=== PATIENT | male | born 1955 | race Caucasian/White ===

== ENCOUNTER → 2018-10-07 | Outpatient (CLI) | payer OTHER ==
[~2018-10-07] MED LIST: ADVAIR HFA115 MCG/21 INH; ALBUTEROL2.5 MG/31 INH; ASPIRIN325 PO; MOBIC7.5 MG
--- NOTE | 2018-10-07 13:40 | 2DMMODE ---
[facility] [place] [address] 2 D/M-MODE ECHOCARDIOGRAM Name: KAT CUMMINS [facility] [id number] ������������� Admission: 10/07/18 ������������� Attend Phys: Jim Alexander, Discharge: ��� ������������� ��� Date of : 51 Date of Service: 10/07/18 1339 �� Report #: [id number] �������� ��������������������������������������������[id number] THIS REPORT FOR: //name// APPROVED REPORT Study performed: 10/07/2018 08:58:52 EXAM: Comprehensive 2D, Doppler, and color-flow Echocardiogram Patient Location: Out-Patient Room #: Echo lab 2 Status: routine BSA: 1.89 HR: 87 bpm BP: 102/62 mmHg Rhythm: NSR Other Information Study Quality: Good Indications CAD 2D Dimensions RVDd: 35.87 mm IVSd: 11.31 (7-11mm) LVOT Diam: 21.93 (18-24mm) LVDd: 35.51 mm PWd: 10.59 (7-11mm) Ascending Ao: 29.96 (22-36mm) LVDs: 25.59 (25-40mm) Aortic Root: 31.98 mm IVC: 16.00 mm Volumes Left Atrial Volume (Systole) Single Plane 4CH: 36.85 mL Single Plane 2CH: 48.52 mL LA ESV Index: 25.00 mL/m2 Aortic Valve AoV Peak Jose E.: 1.16 m/s AO Peak Gr.: 5.41 mmHg LVOT Max P.97 mmHg LVOT Max V: 1.00 m/s SHERITA Vmax: 3.23 cm2 Mitral Valve E/A Ratio: 1.4 MV Decel. Time: 156.17 ms MV E Max Jose E.: 0.98 m/s [facility] [address] [place] [address] 2 D/M-MODE ECHOCARDIOGRAM Name: KAT CUMMINS Room #: REG [facility]#: [id number] ������������� Admission: 10/07/18 ������������� Attend Phys: Jim Alexander, Discharge: ��� ������������� ��� Date of : 51 Date of Service: 10/07/18 1339 �� Report #: [id number] �������� ��������������������������������������������[id number] MV A Jose E.: 0.71 m/s MV PHT: 45.29 ms IVRT: 73.82 ms Pulmonary Valve PV Peak Jose E.: 0.98 m/s PV Peak Gr.: 3.88 mmHg Pulmonary Vein P Vein S: 0.54 m/s P Vein A: 0.28 m/s P Vein D: 0.44 m/s P Vein A Dur.: 73.8 msec P Vein S/D Ratio: 1.23 Left Ventricle The left ventricle is normal size. There is normal LV segmental wall motion. There is normal left ventricular wall thickness. Left ventricular systolic function is vigorous. LVEF is >70%. Transmitral Doppler flow pattern suggests impaired LV relaxation. Right Ventricle The right ventricle is normal size. The right ventricular systolic function is normal. Atria The left atrium size is normal. The right atrium size is normal. Aortic Valve The Aortic valve is sclerotic. No aortic regurgitation is present. There is no aortic valvular stenosis. Mitral Valve The mitral valve is normal in structure. Mild mitral regurgitation. No evidence of mitral valve stenosis. Tricuspid Valve The tricuspid valve is normal in structure. There is no tricuspid valve regurgitation noted. Pulmonic Valve The pulmonary valve is normal in structure. There is no pulmonic valvular regurgitation. Great Vessels The aortic root is normal in size. IVC is normal in size and collapses >50% with inspiration. [facility] [address] [place] [address] 2 D/M-MODE ECHOCARDIOGRAM Name: KAT CUMMINS Room #: REG [facility] [id number] ������������� Admission: 10/07/18 ������������� Attend Phys: Jim Alexander, Discharge: ��� ������������� ��� Date of : 51 Date of Service: 10/07/18 1339 �� Report #: [id number] �������� ��������������������������������������������[id number] Pericardium There is no pericardial effusion. <Conclusion> The left ventricle is normal size. There is normal left ventricular wall thickness. Left ventricular systolic function is vigorous. LVEF is >70%. Transmitral Doppler flow pattern suggests impaired LV relaxation. The Aortic valve is sclerotic. Mild mitral regurgitation. IVC is normal in size and collapses >50% with inspiration. ��������������������������������������������� <ELECTRONICALLY SIGNED> ���������������������������������������� By: Jim Alexander MD, FAC ��������������������������������������������� 10/07/18 1339 1339 38 Jim Alexander MD, FAC /INF
== END ==
LOC: NUC 08:22
DX: I08.0 Rheumatic disorders of both mitral and aortic valves (principal); I25.10 Atherosclerotic heart disease of native coronary artery without angina pectoris; J44.9 Chronic obstructive pulmonary disease, unspecified; F17.200 Nicotine dependence, unspecified, uncomplicated; Z88.5 Allergy status to narcotic agent

== ENCOUNTER 2019-01-21 09:41 | Inpatient (IN) | payer OTHER ==
[~2019-01-21] VITALS: Ht 182.9 cm; Wt 68.4 kg
[2019-01-21 09:43] VITALS: BP 114/63
[2019-01-21 10:15] LABS: ABSOLUTE NEUTROPHILS 11.5 thou/uL (1.4-8.2); BASOPHILS 0.4 % (0.0-2.0); HEMATOCRIT 45.3 % (42.0-52.0); HEMOGLOBIN 15.1 gm/dL (14.0-18.0); LYMPHOCYTES 1.6 % (24.0-44.0); MCH 29.4 pg (26.0-34.0); MCHC 33.4 g/dL (28.0-37.0); MCV 88.2 fL (80.0-100.0); MONOCYTES 4.1 % (1.0-8.0); PLATELET COUNT 248 thou/uL (150-400); POLYS 93.9 % (36.0-66.0); RBC 5.13 mil/uL (4.50-6.00); RDW 15.7 % (10.5-14.5); WBC 12.3 thou/uL (4.0-11.0)
[2019-01-21 10:21] LABS: CALCIUM 9.5 mg/dL (8.5-10.1); CREATININE 1.2 mg/dL (0.7-1.3); POTASSIUM 4.2 mmol/L (3.5-5.1)
[2019-01-21 19:29] VITALS: BP 101/62
[2019-01-21] MEDS ORDERED: LIPITOR40 MG PO (20:30)
--- NOTE | 2019-01-21 21:23 | NUR ---
CALLED THE UNIT FOR THE SECOND TIME TO GIVE REPORT. NURSE NOT AVAILABLE. NURSE ON FLOOR TO CALL BACK WHEN READY.
[2019-01-21 21:29] VITALS: BP 101/53
--- NOTE | 2019-01-21 21:36 | NUR ---
REPORT GIVEN TO CCU RN, CADY.
--- NOTE | 2019-01-21 21:38 | NUR ---
PT RESTING IN BED. O2 SATS STABLE ON 2LNC. AT BEDSIDE. VSS. ST ON THE MONITOR. C/O INTERMITTENT HEAD AND JAW PAIN. NO OTHER MAJOR COMPLAINTS. WILL TRANSFER TO CCU BED. REPORT GIVEN TO CCU RN.
[2019-01-21 21:58] VITALS: BP 101/53
[2019-01-21 22:01] VITALS: BP 112/63
[2019-01-22 00:22] VITALS: BP 100/60
--- NOTE | 2019-01-22 04:40 | NUR ---
PT WAS AN ER ADMIT. PT IS ADMITTED WITH PNA AND FEVER. SPOUSE AT BEDSIDE. PT IS STABLE. ASSESSMENT COMPLETED AND SIGNED. CONSENTS SIGNED. SCHEDULED MEDS ADMINISTERED TO PT. ADMISSION DATA AND ASSESSMENT COMPLETED IN ER. PT IS STABLE. PT DEVELOPED A FEVER. DENIES ANY NEEDS AT THIS TIME.
[2019-01-22 05:30] VITALS: BP 116/67
[2019-01-22 06:10] LABS: URINE BLOOD 1+ (Negative); URINE CLARITY CLEAR; URINE GLUCOSE-RANDOM* TRACE (Negative); URINE KETONES NEGATIVE (Negative); URINE LEUKOCYTES-REFLEX NEGATIVE (Negative); URINE NITRITE-REFLEX NEGATIVE (Negative); URINE PROTEIN (DIPSTICK) 2+ (Negative)
[2019-01-22 06:13] LABS: URINE BILIRUBIN NEGATIVE (Negative); URINE COLOR DARK YELLOW
[2019-01-22 06:14] LABS: ICTOTEST (BILI CONFIRMATORY) Negative (Negative)
[2019-01-22 06:25] LABS: SQUAMOUS 0-3 Few /LPF (0-3)
[2019-01-22 06:26] LABS: BACTERIA-REFLEX 1-9 Few /HPF (None Seen); CASTS None Seen /LPF (None Seen); MUCUS 0-3 Light strn/LPF (None Seen); URINE RBC 0-2 Rare /HPF (0-2); URINE WBC-REFLEX 0-5 Rare /HPF (0-5)
[2019-01-22 06:27] LABS: AMORPHOUS URATES Few /LPF (None Seen)
[2019-01-22 07:10] VITALS: BP 116/62
--- NOTE | 2019-01-22 08:38 | EKG ---
[place] [address] [address] [facility] [place] [address] ELECTROCARDIOGRAM REPORT Name: KAT CUMMINS Room #: 200-I ADM IN M.R.#: [id number] Admission: 01/21/19 Attend Phys: Kristian James Discharge: Date of : 51 Report #: [id number] THIS REPORT FOR: //name// [facility] ED Test Date: 2019-01-21 Test Time: 09:51:57 Pat Name: KAT CUMMINS Department: Room: 200 Gender: M Cable Placer: THANIA : 1955 Requested By: Rayo Rey Order Number: [id number] MD: Juan M Fermin Measurements Intervals [place] Rate: 117 P: 79 FL: 108 QRS: 73 QRSD: 94 T: 60 QT: 311 QTc: 434 Interpretive Statements Sinus tachycardia Ventricular premature complexes Biatrial enlargement RSR' in V1 or V2, right VCD No previous ECG available for comparison Electronically Signed On 01-22-2019 8:38:18 CDT by Juan M Fermin [email or web address] <ELECTRONICALLY SIGNED> By: Juan M Fermin MD, [facility] 01/22/19 0838 0 0 Juan M Fermin MD, FAC /EPI
[2019-01-22 11:10] VITALS: BP 120/67
[2019-01-22 15:35] VITALS: BP 111/57
--- NOTE | 2019-01-22 17:13 | NUR ---
ASSESSMENT CHARTED - MEDS PER JUL - PT SOB WITH MIN EXERTION. PT WITH LOW SAT THIS AFTERNOON - ASSESSMENT @ 1545 CHARTED - SAT ON 2 L MID 80'S TURNED O2 UP TO 4 L NC SAT UPPER 80- - RESP CALL FOR BREATHING TREATMENT - PATIENT SAT POST TREATMENT AND O2 @ 5 LNC - MID 90'S - DR HARE CALLED AND INFORMED OF INCREASED O2 NEEDS @ 1635 AND WHAT WE HAD DONE - NO NEW ORDERS. KAELYN DIET AND FLIUDS. PT STATAING HEIS REALLY TIERD AND WANTS TO REST. CO'S OF HEADACHE THIS AM - GIVEN TYLENOL WITH NO RELIEF - NOTIFIED AND HYDROCODONE IV GIVEN WITH RELIEF - PT POST MED DID HAVE SOME DRY HEAVING WHICH PASSED. AT THE BEDSIDE FOR SOME OF THE DAY. NO CO'S AT THE PRESENT TIME APPEARS TO BE RESTING COMFORTABLY.
[2019-01-22 20:11] VITALS: BP 110/62
[2019-01-23 03:10] VITALS: BP 111/60
--- NOTE | 2019-01-23 04:13 | NUR ---
ASSESSMENTS CHARTED. MEDS CHARTED. PATIENT ON 5 LITERS AT START OF SHIFT. SINUS RHYTHM. KUSH COLORED URINE. UP WITH STANDBY DUE TO DIZZINESS UPON STANDING. DENIED PAIN. ON DRIPS OF NORMAL SALINE AND ANTIBIOTICS. PATIENT C/O STRANGE FEELINGS, HIS JAW LOCKING IN PLACE, AND SOA, BREATHING TREATMENT GIVEN. PATIENT RELAXED FOR THE REST OF THE SHIFT.
[2019-01-23 06:46] VITALS: BP 136/82
[2019-01-23 15:13] VITALS: BP 136/90
[2019-01-23 21:26] VITALS: BP 135/69
--- NOTE | 2019-01-24 04:03 | NUR ---
ASSUMED CARE OF PT @1900. PT A&OX4. PT IS ABLE TO USE THE URINAL AT THE BEDSIDE WITH SB ASSIST. PT ON 5L ON O2 NC WITH SATS IN THE UPPER 90's. RALES WAS NOTED IN PT RIGHT LOWER LOBE WHEN I LISTENED T HIS LUNGS. PT GETS Q4HR NEB TX. PT C/O OF A SHARP PAIN IN THE LEFT QUADRANT AND MILD H/A. TORADOL WAS GIVEN WITH COMPLETE RELIEF. PT IS PRODUCING COPIOUS AMT OF THICK BLOODTINGED SPUTUM. NO S/S OF ACCUTE DISTRESS. WILL CONT TO MONITOR
[2019-01-24 04:56] VITALS: BP 140/77
[2019-01-24 06:17] LABS: CREATININE 0.8 mg/dL (0.7-1.3)
[2019-01-24 07:42] VITALS: BP 133/66
--- NOTE | 2019-01-24 11:06 | NUR ---
PT ALERT XS 4. SELF CARE WITH ADLS. CONT ON IV ABT THERAPY. NO PAIN AT PRESENT CONTINUES ON 5L/ NC. RESP TX'S ORDERED RIGHT LUNG COARSE WITH CRACKLES. HAS NS INFUSING AT 75HR/ THROUGH LEFT AC. PT PLEASANT AND COOPERATIVE WITH CARE.
[2019-01-24 16:45] VITALS: BP 136/78
[2019-01-24 19:42] VITALS: BP 141/77
--- NOTE | 2019-01-25 04:43 | NUR ---
ASSUMED CARE OF PT @1900. NO CHANGES OVERNIGHT. PT CONT ON BREATHING TX Q4HRS. PRODUCTIVE BLOOD TINGE SPUTUM. USES THE URINAL. CALL ROBERT WITHIN REACH
[2019-01-25 08:20] VITALS: BP 135/73
[2019-01-25 14:51] LABS: HEMATOCRIT 38.6 % (42.0-52.0); HEMOGLOBIN 12.7 gm/dL (14.0-18.0); MCH 29.2 pg (26.0-34.0); MCHC 32.9 g/dL (28.0-37.0); MCV 88.8 fL (80.0-100.0); RBC 4.34 mil/uL (4.50-6.00); RDW 16.1 % (10.5-14.5); WBC 10.7 thou/uL (4.0-11.0)
[2019-01-25 15:06] LABS: CALCIUM 8.3 mg/dL (8.5-10.1); CREATININE 0.9 mg/dL (0.7-1.3); POTASSIUM 4.8 mmol/L (3.5-5.1); TOTAL BILIRUBIN 0.3 mg/dL (<0.1-1.0); TOTAL PROTEIN 6.2 g/dL (6.4-8.2)
--- NOTE | 2019-01-25 16:16 | NUR ---
PT CALLED OUT WITH USE OF CALL LIGHT AND STATED HE COULD NOT CATCH HIS BREATH OR BREATH. RN WENT IMMEDIATELY TO PT ROOM AND REASSESED PT. PT'S 02 WAS ON 2L NC AT 90% AND PT WAS TURNED UP TO 5L NC WITH O2 SAT OF 95%. PT STATES HE WAS COUGHING VERY HARD AND BECAME VERY SOA AND FELT HE WAS UNABLE TO BREATH. NURSING STAYED WITH PT, AUSCULTATED LUNGS, TOOK VITAL SIGNS AND INCREASED O2. RT THERAPIST WAS CALLED AND ROUNDED ON PT. PT WAS ABLE TO SLOW, DEEP BREATH AND CALM HIMSELF DOWN. PT IS NOW RESTING, 5L O2 AND STATES HE CAN NOW BREATH IS APPEARS MORE RELAXED.
[2019-01-25 18:58] VITALS: BP 188/80
--- NOTE | 2019-01-26 01:45 | NUR ---
patient aox4 makes needs known. patient has productive cough. patient is on 2l continous no shortness of air or distress noted this shift. patient is up at lionel. patient uses urinal. patient in bed asleep at this time breathing regular and unlaboured.
[2019-01-26 03:09] LABS: GLYCOHEMOGLOBIN (HGB A1C) 6.1 % (4.8-5.6)
[2019-01-26 08:10] VITALS: BP 139/87
[2019-01-26 11:08] LABS: HEMATOCRIT 38.4 % (42.0-52.0); HEMOGLOBIN 12.9 gm/dL (14.0-18.0); MCH 29.6 pg (26.0-34.0); MCHC 33.7 g/dL (28.0-37.0); MCV 87.8 fL (80.0-100.0); RBC 4.37 mil/uL (4.50-6.00); WBC 9.4 thou/uL (4.0-11.0)
[2019-01-26 11:22] LABS: ALBUMIN 2.1 g/dL (3.4-5.0); CALCIUM 8.3 mg/dL (8.5-10.1); CREATININE 0.7 mg/dL (0.7-1.3); TOTAL BILIRUBIN 0.3 mg/dL (<0.1-1.0); TOTAL PROTEIN 6.1 g/dL (6.4-8.2)
--- NOTE | 2019-01-26 14:40 | NUR ---
PT A&OX4, VSS, DENIES PAIN. PT HAS PRODUCTIVE COUGH, SPUTUM IS ORange/PINK. PT IS ON 2L OF OXYGEN, HAS SOA WITH EXERCTION. SOA WITH EXERCTION, AT BEDSIDE. PT AGREES TO TAKE HIS TIME, TAKE DEEP BREATHES, AND TO SPACE OUT ACTIVITIES. WILL CONTINUE TO MONITOR.
[2019-01-26 17:30] VITALS: BP 137/86
[2019-01-26 19:28] VITALS: BP 144/74
[2019-01-27 03:12] VITALS: BP 146/77
--- NOTE | 2019-01-27 03:13 | NUR ---
PATIENT DENIED PAIN OR DISCOMFORT. PATIENT HAS SHORTNESS OR AIR WITH ACTIVITIES. PAIENT HAS A PRODUCTIVE COUGH WITH ORANGE SPUTUM. CALL LIGHT WITHIN REACH. PATIENT IN BED ASLEEP AT THIS TIME BREATHING REGULAR AND UNLABOURED.
[2019-01-27 06:15] LABS: ALBUMIN 2.2 g/dL (3.4-5.0); CALCIUM 8.5 mg/dL (8.5-10.1); CREATININE 0.7 mg/dL (0.7-1.3); POTASSIUM 4.7 mmol/L (3.5-5.1); TOTAL BILIRUBIN 0.4 mg/dL (<0.1-1.0); TOTAL PROTEIN 6.2 g/dL (6.4-8.2)
[2019-01-27 08:42] VITALS: BP 152/79
--- NOTE | 2019-01-27 09:53 | NUR ---
PT ADMITTED RELATED TO FEVER, HEADACHE, BODY ACHES. CM REVIEWED CHART AND SPOKE WITH CARE TEAM. CM MET WITH PT AT BEDSIDE THIS DAY. PT IS A&O X4. CM ROLE INTRODUCED. PT INDICATED THAT HE LIVES IN A HOUSE WITH IS SPOUSE, 2 DOGS, AND A CAT. PT INDICATED HE HAD BEEN INDEPENDENT WITH GAIT AND ADLS MILK CONDENSER. PT INDIATED NO HH OR OP HX. PT INDICATED HE PLANS TO DC HOME ONCE MEDICALLY STABLE. PT INDICATED NO O2 OR NEBS AT HOME MILK CONDENSER. CM TO FOLLOW INDICATED WITH DC PLANNING.
[2019-01-27 15:31] VITALS: BP 135/67
[2019-01-27 17:42] LABS: % SATURATION 20 % (20-39); IRON 49 ug/dL (65-175); TIBC 249 ug/dL (250-450)
[2019-01-27 20:46] VITALS: BP 128/64
[2019-01-27 20:47] VITALS: BP 128/64
--- NOTE | 2019-01-27 21:16 | NUR ---
PT A&OX4, VSS, DENIES PAIN. PT RESTING IN BED, SOA ON EXERTIONS, ON 2L OXYGEN VIA NASAL CANNULA. PATIENT HAS PRODUCTIVE LOOSE COUGH, WITH BLOOD TINGED SPUTUM. SPUTUM CULTURE SENT DOWN TO LAB. PT IS TO BE NPO TONIGHT IN PREPARATION FOR ABD. ULTRASOUND IN THE MORNING 01/28/19. NO SIGNS OF DISTRESS, FAMILY AT BEDSIDE. WILL CONTINUE TO MONITOR.
[2019-01-27 22:06] LABS: IgG 808 mg/dL (700-1600)
[2019-01-28 01:25] VITALS: BP 153/72
--- NOTE | 2019-01-28 02:25 | NUR ---
assumed care of pt @1900. pt a&ox4. no c/o of pain. pt still coughing up copous amt of blood tinge sputum. sputum cultures pendng. pt adlib in room. pt called and said he felt like his entire body was on fire after walkng to the bathroom and back to bed. assessment was done, v/s stable and assessment benign. pt on 2l NC. no signs of distress. pt feels better and will try to continue resting. pt has been npo since after midnght. call sigala within reach. will continue to monitor
[2019-01-28 08:39] VITALS: BP 139/80
[2019-01-28 08:58] LABS: HEMATOCRIT 38.1 % (42.0-52.0); HEMOGLOBIN 12.6 gm/dL (14.0-18.0); MCH 29.1 pg (26.0-34.0); MCHC 33.1 g/dL (28.0-37.0); MCV 87.9 fL (80.0-100.0); RBC 4.34 mil/uL (4.50-6.00); RDW 16.2 % (10.5-14.5)
[2019-01-28 09:08] LABS: ALBUMIN 2.2 g/dL (3.4-5.0); CALCIUM 8.4 mg/dL (8.5-10.1); CREATININE 0.8 mg/dL (0.7-1.3); MAGNESIUM 2.3 mg/dL (1.8-2.4); TOTAL BILIRUBIN 0.3 mg/dL (<0.1-1.0); TOTAL PROTEIN 5.9 g/dL (6.4-8.2)
--- NOTE | 2019-01-28 11:10 | NUR ---
Nutrition: Pt seen for LOS. Admit: fever, headache, body aches, found to have pneumonia and mild hemoptysis. Hx COPD (emphysema in type per MD notes). Met w/ pt and spouse at bedside prior to lunch. Pt is hopeful to discharge today. Very limited meal records available (01/22 and only 1 meal 01/25), but pt reports he is eating, but struggling most w/ medication after taste between steroids, antibiotics, and breathing treatments q 4 h rs. Beaver oatmeal now; refers to it as a "t-bone steak." Encouraged melting in added butter to boost kcal intake or add peanut butter 190 kcals per 2 T. Also suggested protein rich sides. Pt thankful for suggestions. Reports appetite has improved this past week. Denies further nutrition needs. Deemed low nutrition risk.
--- NOTE | 2019-01-28 11:56 | NUR ---
SW reviewed chart and spoke with attending physician. Pt is progressing towards goals for discharge. Discharge home is anticipated for tomorrow. Pt may need home O2. Pt is currently on 2L. Rest/exercise oximetry will need to be completed prior to discharge to determine pt's home O2 needs. Plan is for pt to discharge home when medically stable. SW is following to assist as needed with discharge planning.
[2019-01-28 13:12] LABS: CERULOPLASMIN 24.4 mg/dL (16.0-31.0)
[2019-01-28 14:07] LABS: ANA INTERPRETATION Negative (Negative)
[2019-01-28 14:57] VITALS: BP 123/69
[2019-01-28 16:09] LABS: HAV IgM AB (ANTI-HAV IgM) Negative (Negative); HEPATITIS B SURFACE AG Negative (Negative); HEPATITIS C VIRUS AB <0.1 (0.0-0.9)
[2019-01-28 16:09] LABS: HAV IgM AB (ANTI-HAV IgM) Negative (Negative); HEPATITIS B SURFACE AG Negative (Negative); HEPATITIS C VIRUS AB <0.1 (0.0-0.9)
[2019-01-28 19:18] VITALS: BP 129/68
--- NOTE | 2019-01-28 21:29 | NUR ---
PATIENT ABLE TO MAINTAIN ADEQUATE O2 SATS ON 2L NC WHILE AT REST. AMBULATED WITH RT THIS SHIFT. REQUIRED 4L O2 TO AMBULATE. PATIENT ABLE TO AMBULATE APPROX 300 STEPS OUTSIDE OF UNIT AND AROUND UNIT WITH NURSE. PATIENT REQUIRED 3L O2 AND MAINTAINED SATURATION OF 90%. PATIENT REPORTED SOB TOWARDS END OF AMBULATION BT REPORTS THAT HE HAS FELT MUCH WORSE PREVIOUSLY. INCENTIVE SPIROMETER AT BEDSIDE, PATIENT ENCOURAGED TO USE IS AND REPORTS USING FREQUENTLY.
--- NOTE | 2019-01-29 03:20 | NUR ---
ASSUMED CARE OF PT @ 1900. PT A&OX4. ADLIB IN THE ROOM. ON 2L NC. NO CHANGES OVERNIGHT. VS STABLE. NO S/S OF DISTRESS. CALL ROBERT WITHIN REACH
[2019-01-29 05:03] VITALS: BP 118/75
[2019-01-29 08:06] VITALS: BP 115/66
--- NOTE | 2019-01-29 12:24 | NUR ---
SW reviewed chart and spoke with nursing and attending physician. Pt is progressing towards goals for discharge. Rest/exercise oximetry to be ordered to determine pt's home O2 needs. SW is following to assist as needed with discharge planning.
[2019-01-29] MEDS ORDERED: MIRALAX17 GM PO (14:43)
[2019-01-29] MEDS ORDERED: MUCINEX600 MG PO (14:43)
[2019-01-29] MEDS ORDERED: TYLENOL325 MG PO (14:43)
[2019-01-29] MEDS ORDERED: ACETYLCYST200 MG/1 M PO (14:43)
[2019-01-29] MEDS ORDERED: PREDNISONE 10 M10 MG PO (14:52)
[2019-01-29] MEDS ORDERED: LEVAQUIN 750 M750 MG PO (14:52)
[2019-01-29] MEDS ORDERED: PROBIOTIC1 EAC1 PO (14:52)
--- NOTE | 2019-01-29 15:00 | NUR ---
PT A&OX4, VSS, DENIES PAIN. PATIENT LUNGS CLEAR, PT HAS PRODUCTIVE COUGH WITH LESS BLOOD IN SPUTUM. PT STATES HE IS COUGHING LESS. O2 SATS 94%, BREATHING REGULAR, NO SIGNS OF DISTRESS. WILL CONTINUE TO MONITOR.
[2019-01-29 16:38] VITALS: BP 115/66
[2019-03-30] MEDS ORDERED: ASA81BEC PO (15:13)
[2019-03-30] MEDS ORDERED: ADVAIR 250-501 EACH INH (15:14)
[2019-03-30] MEDS ORDERED: SPIRIVA INH (15:15)
[2019-03-30] MEDS ORDERED: PROAIR HFA8.5 GM INH (15:16)
[2019-03-30] MEDS ORDERED: CRESTOR20 MG PO (15:17)
== END 2019-01-29 17:32 | disposition home or self-care (01) | DRG 871 ==
LOC: ER 09:41 → EROBS 10:53 → 2N 10:53 → EROBS 19:38 → 2N 21:45 → 4W 01-23 06:32
PROVIDERS: Emergency Medicine; Internal Medicine; Nurse Practitioner; ADMIT Hospitalist
DX: A41.9 Sepsis, unspecified organism (principal); J96.01 Acute respiratory failure with hypoxia; J15.9 Unspecified bacterial pneumonia; R04.2 Hemoptysis; E46 Unspecified protein-calorie malnutrition; J98.11 Atelectasis; F17.210 Nicotine dependence, cigarettes, uncomplicated; E78.5 Hyperlipidemia, unspecified; J43.9 Emphysema, unspecified; K75.9 Inflammatory liver disease, unspecified; N28.1 Cyst of kidney, acquired; Z68.20 Body mass index [BMI] 20.0-20.9, adult; Z88.6 Allergy status to analgesic agent; Z71.6 Tobacco abuse counseling; Z86.010 Personal history of colon polyps; Z79.899 Other long term (current) drug therapy
CPT/HCPCS: 10047; 10081; 10194

== ENCOUNTER → 2019-03-10 | Outpatient (CLI) | payer OTHER ==
[~2019-03-10] MED LIST changes: +ACETYLCYST200 MG/1 M PO; +ADVAIR 250-501 EACH INH; +ASA81BEC PO; +CRESTOR20 MG PO; +LEVAQUIN 750 M750 MG PO; +LIPITOR40 MG PO; +MIRALAX17 GM PO; +MUCINEX600 MG PO; +PREDNISONE 10 M10 MG PO; +PROAIR HFA8.5 GM INH; +PROBIOTIC1 EAC1 PO; +SPIRIVA INH; +TYLENOL325 MG PO
== END ==
LOC: RAD 11:53
DX: J69.0 Pneumonitis due to inhalation of food and vomit (principal)

== ENCOUNTER → 2019-04-01 | Outpatient (CLI) | payer OTHER ==
[~2019-04-01] VITALS: Ht 180.3 cm; Wt 68.9 kg
--- NOTE | 2019-04-02 18:06 | PATH ---
[facility] [place] [address] PATHOLOGY RPT PROCEDURE Name: REGGIE CUMMINS Room #: REG [facility] M.R.#: [id number] Admission: 04/01/19 Date of : 51 Discharge: Report #: [id number] Path Case #: [id number] [facility] Accession Number: [id number] . 01 Material submitted: . PART A: colon - POLYP AT TRANSVERSE COLON. Modifiers: transverse PART B: colon - POLYP AT DESCENDING COLON X2. Modifiers: descending PART C: colon - POLYP AT SIGMOID COLON. Modifiers: sigmoid PART D: rectum - POLYP X4 AT RECTUM . 01 Clinical history: . History of polyps, cecal AVMs, colon polyps . 02 Diagnosis: A. Polyp, at transverse colon, endoscopic biopsy: - Tubular adenoma. - Negative for high-grade dysplasia. . B. Polyp x2, descending colon, endoscopic biopsy: - Tubular adenoma identified in two fragments. - Negative for high-grade dysplasia. . C. Polyp, at sigmoid colon, endoscopic biopsy: - Tubular adenoma. - Negative for high-grade dysplasia. . D. Polyp x4, at rectum, endoscopic biopsy: - One fragment showing tubular adenoma without high-grade dysplasia. - Remainder of fragments showing hyperplastic polyps without dysplasia. . (IUV:dental therapist; 04/02/2019) MBR 04/02/2019 1217 Local . 02 Electronically signed: . Krupa Alcantara MD, Pathologist NPI- [id number] . 01 Gross description: . A. The specimen is received in formalin, labeled "Reggie Cummins, polyp at transverse colon, HS", is a brown-ng rubbery polyp measuring 1.0 x 0.5 x 0.2 cm, inked black and trisected. The specimen is entirely submitted in A1. . B. The specimen is received in formalin, labeled "Reggie Cummins, polyp at descending colon X2", are few irregular fragments of ng soft tissue measuring 0.5 x 0.5 x 0.1 cm in aggregate. Entirely submitted in B1. . [address] [address] PATHOLOGY RPT PROCEDURE Name: REGGIE CUMMINS Room #: REG CL Sen#: [id number] Admission: 04/01/19 Date of : 51 Discharge: Report #: [id number] Path Case #: [id number] C. The specimen is received in formalin, labeled "Reggie Cummins, polyp at sigmoid colon, HS", is a ng rubbery polyp measuring 0.5 x 0.5 x 0.2 cm, inked black and bisected. The specimen is entirely submitted in C1. . D. The specimen is received in formalin, labeled "Reggie Cummins, polyp X4 at rectum", are few irregular fragments of ng soft tissue measuring 0.5 x 0.4 x 0.1 cm in aggregate. Entirely submitted in D1. ([facility]; 04/01/2019) [facility] 04/01/[address] [place] [address] . 02 Pathologist provided ICD-10: D12.3, D12.4, D12.5, D12.8, K63.5 . 02 CPT . 235948, 414622, 430619, 032022 Specimen Comment: A courtesy copy of this report has been sent to [phone] Specimen Comment: [id number] Specimen Comment: Report sent to / DR RAMOS Performed at: [address], [place] [id number] MD Satish Chavria MD Phone: [phone] Performed at: [address] [id number] MD Krupa Alcantara MD Phone: [phone]
--- NOTE | 2019-04-03 08:07 | P ---
[facility] [place] [address] PROCEDURE REPORT Name: PLACIDO,KAT SAAVEDRA [facility] [id number] Admission: 04/01/19 Attend Phys: Leland Barnes Discharge: Date of : 51 Report #: [id number] THIS REPORT FOR: //name// CC: Leland Solomon MD DATE OF SERVICE: 04/01/2019 PROCEDURE PERFORMED: Colonoscopy with polypectomies and bleeding control. HISTORY OF PRESENT ILLNESS: The patient is a 63-year-old male with a history of colon polyps on last colonoscopy in [place] 8-9 years ago. He is here for routine followup. He denies any symptoms at this time. No family history of colon cancer. DESCRIPTION OF PROCEDURE: The risks and benefits of the procedure were explained to the patient, those risks including but not limited to bleeding, perforation and the risk of sedation. He understood these risks and gave informed consent. Sedation was given using propofol per anesthesia. Next, a digital rectal exam was initially performed, which was normal. Next, using a standard Olympus colonoscope, the scope was placed in the patient's anus and advanced under direct vision to the cecum. The overall prep was excellent. In the ascending and cecal area, there was a small amount of bright red blood. I noted two AVMs in the cecum, one of which was actively had a small amount of oozing. The smallest was approximately 5 mm in size and this was cauterized with 7-Indonesian bipolar cautery. No further bleeding was noted. There was a larger nonbleeding AVM that was approximately 1.5 cm in size. This was also cauterized. No evidence of bleeding after cauterization. Otherwise, normal cecum. The ileocecal valve was normal. The ascending colon was normal. In the transverse colon, there was a 1 cm sessile polyp. This was removed by snare cautery, otherwise normal. In the descending colon, there were two 4-5 mm sessile polyps, both removed by cold forceps. In the sigmoid colon, another 6 mm sessile polyp removed by snare cautery. In the rectum, there were four 3-4 mm sessile polyps, all removed by cold forceps. On retroflexion, small to medium size nonbleeding internal hemorrhoids were also noted. The scope was then withdrawn and the procedure terminated. The patient tolerated the procedure well. IMPRESSION: 1. 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 Both were cauterized today as described above. 2. Multiple small colonic polyps as described above. 3. Internal hemorrhoids. 4. Otherwise, normal colonoscopy. [address] [address] PROCEDURE REPORT Name: KAT CUMMINS Room #: REG [facility] Chatterjee#: [id number] Admission: 04/01/19 Attend Phys: Leland Barnes Discharge: Date of : 51 Report #: [id number] RECOMMENDATIONS: 1. Await biopsy results. 2. Repeat colonoscopy in 5 years. Thank you for allowing me to participate in his care. <ELECTRONICALLY SIGNED> By: Leland Anand MD 04/03/19 0807 1014 1254 Leland Anand MD /nt
== END | disposition home or self-care (01) ==
LOC: GI
DX: Z12.11 Encounter for screening for malignant neoplasm of colon (principal); Z86.010 Personal history of colon polyps; K55.21 Angiodysplasia of colon with hemorrhage; D12.3 Benign neoplasm of transverse colon; D12.4 Benign neoplasm of descending colon; D12.5 Benign neoplasm of sigmoid colon; D12.8 Benign neoplasm of rectum; K64.8 Other hemorrhoids; J43.9 Emphysema, unspecified; G43.809 Other migraine, not intractable, without status migrainosus; E78.00 Pure hypercholesterolemia, unspecified; Z98.890 Other specified postprocedural states; Z79.899 Other long term (current) drug therapy; Z87.01 Personal history of pneumonia (recurrent); Z87.891 Personal history of nicotine dependence; Z88.8 Allergy status to other drugs, medicaments and biological substances; Z79.82 Long term (current) use of aspirin
CPT/HCPCS: 62110; 62900

== ENCOUNTER → 2019-05-04 | Outpatient (CLI) | payer OTHER | LOC: RAD 12:17 | DX: J98.4 Other disorders of lung (principal); J43.9 Emphysema, unspecified; J69.0 Pneumonitis due to inhalation of food and vomit ==

== ENCOUNTER → 2020-02-23 | Outpatient (CLI) | payer OTHER | LOC: RAD 09:17 | PROVIDERS: ATTEND Internal Medicine Pulmonary Disease | DX: J84.10 Pulmonary fibrosis, unspecified (principal) ==

== ENCOUNTER 2020-11-30 02:46 | Emergency (ER) | payer OTHER ==
[~2020-11-30] VITALS: Ht 182.9 cm; Wt 78.9 kg
[2020-11-30] MEDS ORDERED: ADVAIR 250-501 EACH INH (02:58)
[2020-11-30] MEDS ORDERED: IBUPROFEN200 M1 PO (02:58)
[2020-11-30 04:35] LABS: CALCIUM 8.4 mg/dL (8.5-10.1); POTASSIUM 3.8 mmol/L (3.5-5.1)
[2020-11-30 04:41] LABS: ALBUMIN 3.6 g/dL (3.4-5.0); TOTAL BILIRUBIN 0.3 mg/dL (0.2-1.0); TOTAL PROTEIN 7.1 g/dL (6.4-8.2)
[2020-11-30 05:00] LABS: ABSOLUTE NEUTROPHILS 3.9 thou/uL (1.4-8.2); BASOPHILS 0.5 % (0.0-2.0); EOSINOPHILS 0.4 % (0.0-3.0); HEMATOCRIT 43.3 % (42.0-52.0); HEMOGLOBIN 14.4 gm/dL (14.0-18.0); MCH 28.1 pg (26.0-34.0); MCHC 33.3 g/dL (28.0-37.0); MCV 84.4 fL (80.0-100.0); MONOCYTES 14.5 % (1.0-8.0); PLATELET COUNT 213 thou/uL (150-400); POLYS 76.6 % (36.0-66.0); RBC 5.13 mil/uL (4.50-6.00); RDW 14.9 % (10.5-14.5); WBC 5.1 thou/uL (4.0-11.0)
[2020-11-30] MEDS ORDERED: ZOFRAN ODT4 MG PO (05:14)
[2020-11-30 05:34] VITALS: BP 121/78
[2020-11-30] MEDS ORDERED: ZPAK PO (07:59)
[2020-11-30] MEDS ORDERED: PREDNISONE (07:59)
== END 2020-11-30 05:20 | disposition home or self-care (01) ==
LOC: ER 02:46
PROVIDERS: Emergency Medicine
DX: U07.1 COVID-19 (principal); R05 Cough; R68.83 Chills (without fever); J44.9 Chronic obstructive pulmonary disease, unspecified; E78.00 Pure hypercholesterolemia, unspecified; G43.909 Migraine, unspecified, not intractable, without status migrainosus; F17.210 Nicotine dependence, cigarettes, uncomplicated; Z79.899 Other long term (current) drug therapy; Z79.1 Long term (current) use of non-steroidal anti-inflammatories (NSAID); Z79.51 Long term (current) use of inhaled steroids; Z88.6 Allergy status to analgesic agent; Z88.5 Allergy status to narcotic agent